=== PATIENT | female | born 1995 | race Caucasian/White ===

== ENCOUNTER → 2016-04-15 | Outpatient (CLI) | payer OTHER ==
[2016-04-16 08:47] LABS: BASO % 0.1 % (0.0-1.0); EOS # 0.1 K/mm3 (0.0-0.50); EOS % 1.2 % (0.0-3.0); LARGE UNSTAINED CELL # 0.1 K/mm3 (0.0-0.4); LYMPH # 0.3 K/mm3 (1.5-6.5); LYMPH % 3.3 % (24.0-44.0); MEAN CORPUSCULAR HEMOGLOBIN 31.6 pg (27.0-33.0); MEAN CORPUSCULAR HGB CONC 34.1 g/dl (32.0-36.5); MEAN CORPUSCULAR VOLUME 92.5 fl (80.0-96.0); MONO # 0.4 K/mm3 (0.0-0.8); MONO % 3.7 % (0.0-5.0); NEUTROPHILS % 90.6 % (36.0-66.0); PLATELET COUNT, AUTOMATED 214 k/mm3 (150-450); RED CELL DISTRIBUTION WIDTH 12.9 % (11.5-14.5); WHITE BLOOD COUNT 9.9 K/mm3 (4.0-10.0)
[2016-04-16 08:58] LABS: ALBUMIN 4.3 GM/DL (3.2-5.2); ALBUMIN/GLOBULIN RATIO 1.39 (1.00-1.93); ALKALINE PHOSPHATASE 50 U/L (45-117); ALT/SGPT 19 U/L (12-78); ANION GAP 7 MEQ/L (8-16); AST/SGOT 13 U/L (15-37); BILIRUBIN,TOTAL 1.1 MG/DL (0.2-1.0); BLOOD UREA NITROGEN 14 MG/DL (7-18); CALCIUM LEVEL 8.9 MG/DL (8.5-10.1); CARBON DIOXIDE LEVEL 26 MEQ/L (21-32); CHLORIDE LEVEL 109 MEQ/L (98-107); CREATININE FOR GFR 0.91 MG/DL (0.55-1.02); GLOMERULAR FILTRATION RATE > 60.0 (>60); GLUCOSE, FASTING 91 MG/DL (70-105); HCG, SERUM QUANTITATIVE 77 MIU/ML; POTASSIUM SERUM 4.5 MEQ/L (3.5-5.1); SODIUM LEVEL 142 MEQ/L (136-145); TOTAL PROTEIN 7.4 GM/DL (6.4-8.2)
== END ==
LOC: M WUC 16:42
PROVIDERS: ATTEND Physician Assistant
DX: R11.2 Nausea with vomiting, unspecified (principal)

== ENCOUNTER → 2016-05-17 | Outpatient (CLI) | payer OTHER ==
[2016-05-17 12:21] LABS: BASO % 0.3 % (0.0-1.0); EOS % 0.2 % (0.0-3.0); LARGE UNSTAINED CELL # 0.2 K/mm3 (0.0-0.4); LARGE UNSTAINED CELL % 2.6 % (0.0-4.0); LYMPH # 1.3 K/mm3 (1.5-6.5); LYMPH % 19.6 % (24.0-44.0); MEAN CORPUSCULAR HEMOGLOBIN 30.7 pg (27.0-33.0); MEAN CORPUSCULAR HGB CONC 33.8 g/dl (32.0-36.5); MEAN CORPUSCULAR VOLUME 90.8 fl (80.0-96.0); MONO # 0.5 K/mm3 (0.0-0.8); MONO % 7.4 % (0.0-5.0); NEUTROPHILS # 4.5 K/mm3 (1.8-7.7); NEUTROPHILS % 69.9 % (36.0-66.0); PLATELET COUNT, AUTOMATED 213 k/mm3 (150-450); RED CELL DISTRIBUTION WIDTH 12.7 % (11.5-14.5); WHITE BLOOD COUNT 6.5 K/mm3 (4.0-10.0)
--- NOTE | 2016-05-17 12:42 | REP ---
Clinical: Abnormality on initial first trimester ultrasound. Technique: Transabdominal and transvaginal first trimester obstetrical ultrasound with color Doppler evaluation. Findings: Uterus measures 9.2 x 5.1 x 6.7 cm and the endometrial complex is distended by heterogeneous structure measuring greater than 1.7 cm. Differential diagnosis includes partial molar as well as incomplete . Correlation with serial HCG levels recommended. No normal intrauterine identified. Maternal ovaries appear normal with appropriate vascularity and no evidence for torsion. Right ovary measures 2.4 x 1.7 x 2.3 cm; RI equal 0.40. Left ovary measures 3.2 x 3.1 x 1.7 cm; RI equal 0.38 and contains 1.8 cm corpus luteal cyst. Impression: Complex material 1.7 cm structure distending the endometrial complex without normal intrauterine identified. Differential diagnosis includes partial molar as well as incomplete . Correlation with serial HCG levels recommended. Signed by Roddy Estrada MD 05/17/2016 12:34 P
[2016-05-17 13:01] LABS: ALBUMIN 4.3 GM/DL (3.2-5.2); ALBUMIN/GLOBULIN RATIO 1.43 (1.00-1.93); ALKALINE PHOSPHATASE 47 U/L (45-117); ALT/SGPT 17 U/L (12-78); ANION GAP 8 MEQ/L (8-16); AST/SGOT 14 U/L (15-37); BILIRUBIN,TOTAL 0.7 MG/DL (0.2-1.0); BLOOD UREA NITROGEN 9 MG/DL (7-18); CALCIUM LEVEL 9.1 MG/DL (8.5-10.1); CARBON DIOXIDE LEVEL 26 MEQ/L (21-32); CHLORIDE LEVEL 107 MEQ/L (98-107); GLOMERULAR FILTRATION RATE > 60.0 (>60); GLUCOSE, FASTING 91 MG/DL (70-105); HCG, SERUM QUANTITATIVE 43824 MIU/ML; SODIUM LEVEL 141 MEQ/L (136-145); TOTAL PROTEIN 7.3 GM/DL (6.4-8.2)
== END ==
LOC: M LAB 11:41
PROVIDERS: ATTEND Student in an Organized Health Care Education/Training Program
DX: O28.3 Abnormal ultrasonic finding on antenatal screening of mother (principal); Z3A.08 8 weeks gestation of pregnancy

== ENCOUNTER → 2016-05-22 | Outpatient (CLI) | payer OTHER ==
[2016-05-22 09:43] LABS: MEAN CORPUSCULAR HEMOGLOBIN 31.1 pg (27.0-33.0); MEAN CORPUSCULAR HGB CONC 34.5 g/dl (32.0-36.5); MEAN CORPUSCULAR VOLUME 90.1 fl (80.0-96.0); WHITE BLOOD COUNT 6.3 K/mm3 (4.0-10.0)
--- NOTE | 2016-05-22 10:23 | REP ---
FIRST TRIMESTER ULTRASOUND: Real-time sonographic evaluation of the pelvis is performed utilizing transabdominal and endovaginal technique. The uterus measures 9.4 x 6.2 x 7.5 cm. Endometrial echo complex is markedly thickened and heterogenous with multiple solid and cystic areas, maximum AP diameter is 4 cm with a beta HCG value of 43,824 on May 17, 2016, I suspect a partial molar . Right ovary measures 2.6 x 2.0 x 1.8 cm and left ovary 4.1 x 3.2 x 3.2 cm. The cystic structure in the right ovary measures 1.4 x 0.9 x 1.1 cm. Cystic structure in the left ovary measures 2.1 x 1.7 x 2.0 cm. There is no evidence of ovarian torsion, with blood flow seen in each ovary with duplex Doppler evaluation. RI of the right ovary is 0.38 and the left ovary 0.65. There is mild free fluid. There is no other evidence of adnexal mass. IMPRESSION: Suspect partial molar in the uterus. Findings could also represent retained products of conception but this is considered less likely with a beta HCG value of over 43,000 on May 17, 2016. Signed by Travon Anthony MD 05/22/2016 04:55 P
== END ==
LOC: M LAB 09:10
PROVIDERS: ATTEND Student in an Organized Health Care Education/Training Program
DX: O28.3 Abnormal ultrasonic finding on antenatal screening of mother (principal); Z3A.00 Weeks of gestation of pregnancy not specified

== ENCOUNTER → 2016-05-22 | Day surgery (SDC) | payer OTHER ==
[~2016-05-22] VITALS: Ht 170.2 cm; Wt 57.8 kg
[~2016-05-22] MED LIST: DOXYCYCLINE HYCLATE 100 MG TAB As Ordered ONE; DOXYCYCLINE HYCLATE 100 MG TAB PO ONE; KETOROLAC 30 MG/ML VIAL (J1885) As Ordered ONE; KETOROLAC 30 MG/ML VIAL (J1885) IV PRN; LIDOCAINE 1% SDV INJ 30 ML VIAL As Ordered ONE; LIDOCAINE 2% INJ 100 MG/5 ML SDV (FOR ANES.) As Ordered ONE; LR 1,000 ML IV SCH; METHYLERGONOVINE MALEATE 0.2 MG/ML VIAL (J2210) As Ordered ONE; METHYLERGONOVINE MALEATE 0.2 MG/ML VIAL (J2210) IM PRN; MIDAZOLAM INJ 2 MG/2 ML VIAL (J2250) As Ordered ONE; MORPHINE 2 MG/ML 1ML SYRINGE IV PRN; ONDANSETRON 4MG/2ML VIAL (J2405) IV PRN; PROPOFOL 200 MG/20 ML VIAL As Ordered ONE; SILVER NITRATE APPLICATOR As Ordered ONE; fentaNYL 100 MCG/2 ML INJECTION (J3010) As Ordered ONE; miSOPROStol 200 MCG TAB (S0191) As Ordered ONE; miSOPROStol 200 MCG TAB (S0191) PR ONE
[2016-05-22 12:20] LABS: MEAN CORPUSCULAR HEMOGLOBIN 30.6 pg (27.0-33.0); MEAN CORPUSCULAR HGB CONC 33.7 g/dl (32.0-36.5); MEAN CORPUSCULAR VOLUME 90.8 fl (80.0-96.0); WHITE BLOOD COUNT 6.7 K/mm3 (4.0-10.0)
[2016-05-22 12:46] LABS: ANION GAP 10 MEQ/L (8-16); BLOOD UREA NITROGEN 7 MG/DL (7-18); CALCIUM LEVEL 8.6 MG/DL (8.5-10.1); CARBON DIOXIDE LEVEL 25 MEQ/L (21-32); CHLORIDE LEVEL 106 MEQ/L (98-107); CREATININE FOR GFR 0.81 MG/DL (0.55-1.02); GLOMERULAR FILTRATION RATE > 60.0 (>60); GLUCOSE, FASTING 82 MG/DL (70-105); POTASSIUM SERUM 3.9 MEQ/L (3.5-5.1); SODIUM LEVEL 141 MEQ/L (136-145)
[2016-05-22 12:49] LABS: CONTROL LINE HCG INT CTR LINE PRESENT
[2016-05-22] MEDS: fentaNYL 100 MCG/2 ML INJECTION (J3010) IV PRN ×2 (15:25→15:30)
[2016-05-22 16:35] VITALS: BP 120/72
--- NOTE | 2016-05-23 08:23 | RO ---
DATE OF PROCEDURE: 05/22/2016 PREPROCEDURE DIAGNOSES: 1. Concern for molar . 2. No intrauterine . POSTPROCEDURE DIAGNOSES: 1. Believed molar . 2. No normal appearing intrauterine . COMPLICATIONS: None. ESTIMATED BLOOD LOSS: 400 mL IV FLUIDS: 1000 mL isotonic fluid. URINE OUTPUT: 25 mL with Suh catheter. SURGEON: Junito Murphy MD GIS MANAGER: None. ANESTHESIA: Dr. Bartlett general. PROCEDURE: Suction dilation and curettage. INDICATION FOR SURGERY: The patient is a 21-year-old, 2, para 1 with a known abnormal with quantitative HCG around 68,000, continued normal adnexal appearance on ultrasound. Minimal free fluid and a thickened heterogenous appearing ultrasound, reconfirmed this day and now measuring near 4 cm with concern for molar . The patient was extensively counseled on risks/benefits/alternatives/indication to proceeding with the procedure versus expectantly managing. The patient had been previously discussed on two separate occasions and desired expectant management. I discussed that the decision will be made this day depending on HCG, as well as ultrasound findings. With still normal appearing intrauterine and abnormal appearing endometrium lining this day and endometrial contents, decision made to proceed to the operating room for a planned suction dilatation and curettage for concern for molar . The risks/benefits/alternatives/indications were reviewed with the patient and informed consent was obtained. The patient was also verbally consented for a blood transfusion. The patient's quantitative HCG on this day was 68,007. The risks/benefits/indications/alternatives were again reviewed with the patient in the preoperative waiting area and informed consent was obtained. DESCRIPTION OF PROCEDURE: At this time, the patient was taken to the operating room where general anesthesia, per patient's selection, was obtained without difficulty. The patient was placed in the high lithotomy position using Ismael stirrups. Examination under anesthesia was performed and significant for approximately 10-week sized, anteverted uterus, mobile, with no adnexal masses or fullness appreciated. The patient was then prepped and draped in the normal sterile fashion. She had a Suh catheter placed in routine fashion without complication. A sterile speculum was then placed in the patient's vagina and the cervix was visualized. A single toothed tenaculum was used to grasp the anterior lip of the cervix. The cervix was then gently serially dilated using Hanks dilators to 20-[place]. A 10-mm curved suction catheter was then introduced into the uterine cavity and then gently advanced to the uterine fundus. The suction device was activated to 60 mmHg and the catheter rotated to clear the uterine contents. Approximately four passes were performed with a significant amount of tissue and moderate bleeding obtained. A gentle sharp curettage was then performed until a gritty texture was noted. One final pass with the suction catheter was then performed with minimal tissue and minimal bleeding noted. All tissue was sent to pathology for review. The single toothed tenaculum was then removed from the anterior lip of the cervix. 1000 mcg of Cytotec was placed per rectum times one. Also, 0.2 mg intramuscularly of Methergine times one was also given to the patient at this time. A transabdominal ultrasound was performed with endometrial stripe demonstrating 1 cm with no abnormal appearance to the endometrial lining any further. Tenaculum sites were noted to be hemostatic. All instruments were removed from the patient's vagina. The patient tolerated the procedure well. Vaginal sweep was performed and confirmed no retained products within the vagina. At the completion of the case, needle, sponge, and lap counts were correct times two. The patient tolerated the procedure well and was taken to the postanesthesia care unit in stable condition. Prior to the OR case, 100 mg of doxycycline by mouth times one was provided to the patient. 200 mg by mouth doxycycline times one was to be provided to the patient in recovery. Suh catheter planned to be removed in recovery with void after.
== END | disposition home or self-care (01) ==
LOC: M SDC 11:24
PROVIDERS: ATTEND Student in an Organized Health Care Education/Training Program
DX: O01.9 Hydatidiform mole, unspecified (principal); O28.3 Abnormal ultrasonic finding on antenatal screening of mother; Z3A.00 Weeks of gestation of pregnancy not specified
CPT/HCPCS: 36415; 59870; 76801; 76817; 80048; 84702; 84703; 85007; 85027; 86850; 86900; 86901; 88305; 93976; J1885; J2210; J2250; J3010

== ENCOUNTER → 2016-05-24 | Outpatient (CLI) | payer OTHER | LOC: M LAB 15:44 | PROVIDERS: ATTEND Student in an Organized Health Care Education/Training Program | DX: O28.3 Abnormal ultrasonic finding on antenatal screening of mother (principal); Z3A.00 Weeks of gestation of pregnancy not specified ==

== ENCOUNTER → 2016-06-02 | Outpatient (CLI) | payer OTHER ==
[~2016-06-02] MED LIST changes: -DOXYCYCLINE HYCLATE 100 MG TAB As Ordered ONE; -DOXYCYCLINE HYCLATE 100 MG TAB PO ONE; +ISOVUE-370 76% 100ML VIAL (Q9967) As Ordered ONE; -KETOROLAC 30 MG/ML VIAL (J1885) As Ordered ONE; -KETOROLAC 30 MG/ML VIAL (J1885) IV PRN; -LIDOCAINE 1% SDV INJ 30 ML VIAL As Ordered ONE; -LIDOCAINE 2% INJ 100 MG/5 ML SDV (FOR ANES.) As Ordered ONE; -LR 1,000 ML IV SCH; -METHYLERGONOVINE MALEATE 0.2 MG/ML VIAL (J2210) As Ordered ONE; -METHYLERGONOVINE MALEATE 0.2 MG/ML VIAL (J2210) IM PRN; -MIDAZOLAM INJ 2 MG/2 ML VIAL (J2250) As Ordered ONE; -MORPHINE 2 MG/ML 1ML SYRINGE IV PRN; -ONDANSETRON 4MG/2ML VIAL (J2405) IV PRN; -PROPOFOL 200 MG/20 ML VIAL As Ordered ONE; -SILVER NITRATE APPLICATOR As Ordered ONE; -fentaNYL 100 MCG/2 ML INJECTION (J3010) As Ordered ONE; -miSOPROStol 200 MCG TAB (S0191) As Ordered ONE; -miSOPROStol 200 MCG TAB (S0191) PR ONE
--- NOTE | 2016-06-02 17:36 | REP ---
CT study of the chest with IV contrast: History: Right lung nodule. Status post molar . No comparison chest x-ray available. By history a recent chest x-ray showed a 4 mm calcified nodule in the right upper lobe and subsegmental linear scarring versus atelectasis in the left lung base. CT contrast dose: 75 mL of Isovue [address] findings: The lung dickerson are clear. No pulmonary nodule is seen. No granulomatous calcification is appreciated. No pleural or pericardial effusion is seen. No hilar or mediastinal mass or adenopathy is observed. There is a small quantity of residual thymic tissue noted in the anterior mediastinum. No adrenal lesion is seen. The visualized upper abdominal structures are unremarkable. No bony destructive lesion is appreciated. Impression: Negative chest CT study with IV contrast. No pulmonary nodule or mass lesion seen. No evidence to suggest metastatic disease. Signed by Edgardo Zayas MD 06/03/2016 12:24 P
== END ==
LOC: M RAD 15:15
PROVIDERS: ATTEND Obstetrics & Gynecology
DX: R91.1 Solitary pulmonary nodule (principal)
CPT/HCPCS: 71260; Q9967